=== PATIENT | female | born 1975 | race African-American/Black ===

== ENCOUNTER 2018-07-17 11:04 | Inpatient (IN) | payer OTHER ==
[2018-07-17 12:27] VITALS: BMI 19.2
--- NOTE | 2018-07-17 13:03 | HP ---
CIWA Score - Admission Criteria [facility] Guidelines: Admission for Medically Managed Detox: Requires at least one of the followin. CIWA greater than 12 2. Seizures within the past 24 hours 3. Delirium tremens within the past 24 hours 4. Hallucinations within the past 24 hours 5. Acute intervention needed for co occurring medical disorder 6. Acute intervention needed for co occurring psychiatric disorder 7. Severe withdrawal that cannot be handled at a lower level of care (continued vomiting, continued diarrhea, abnormal vital signs) requiring intravenous medication and/or fluids 8. Admission ROS S - HPI Chief Complaint: i am here for rehab,alcohol,cocaine,marijuana,requested rehab,multiple rehab admissions,last 03/20/15 to 04/03/15 keep relapsing nicotine dependence 1 pack/day,requesting nicotine patch weight loss longest period of sobriety 2 years plan to go back to outpatient program after rehab Allergies/Adverse Reactions: Allergies Allergy/AdvReac Type Severity Reaction Status Date / Time doxycycline Allergy Severe Hives Verified 07/17/18 11:25 grapefruit Allergy Severe Hives Verified 07/17/18 11:25 History of Present Illness: this 43 years old female with alcohol,cocaine and marijuana dependence for rehab as mentioned in chief complaint Exam Limitations: No Limitations - Ebola screening Have you traveled outside of the country in the last 21 days: No Have you had contact with anyone from an Ebola affected area: No - Review of Systems Constitutional: No Symptoms Reported EENT: reports: No Symptoms Reported Respiratory: reports: No Symptoms reported, Other (asthma) Cardiac: reports: No Symptoms Reported GI: reports: No Symptoms Reported : reports: No Symptoms Reported Musculoskeletal: reports: No Symptoms Reported Integumentary: reports: No Symptoms Reported Neuro: reports: No Symptoms reported Endocrine: reports: No Symptoms Reported Hematology: reports: No Symptoms Reported Psychiatric: reports: No Sypmtoms Reported, Judgement Intact, Mood/Affect Appropiate, Orientated x3 Other Systems: Reviewed and Negative Patient History - Patient Medical History Hx Anemia: No Hx Asthma: Yes (Pt is on Albuterol IH) Hx Chronic Obstructive Pulmonary Disease (COPD): No Hx Cancer: No Hx Cardiac Disorders: No Hx Congestive Heart Failure: No Hx Hypertension: No Hx Hypercholesterolemia: No Hx Pacemaker: No HX Cerebrovascular Accident: No Hx Seizures: No Hx Dementia: No Hx Diabetes: No Hx Gastrointestinal Disorders: No Hx Liver Disease: No Hx Genitourinary Disorders: No Hx Sexually Transmitted Disorders: No Hx Renal Disease (ESRD): No Hx Thyroid Disease: No Hx Human Immunodeficiency Virus (HIV): Yes (since 1998 ,no medication) Hx Hepatitis C: No Hx Depression: Yes (no med) Hx Suicide Attempt: No Hx Bipolar Disorder: No Hx Schizophrenia: No Other Medical History: no suicidal,no homicidal - Patient Surgical History Past Surgical History: No Hx Neurologic Surgery: No Hx Cataract Extraction: No Hx Cardiac Surgery: No Hx Lung Surgery: No Hx Breast Surgery: No Hx Breast Biopsy: No Hx Abdominal Surgery: No Hx Appendectomy: No Hx Cholecystectomy: No Hx Genitourinary Surgery: No Hx Section: No Hx Orthopedic Surgery: No Anesthesia Reaction: No - PPD History Previous Implant?: Yes Documented Results: Positive w/o proof Implanted On Prior R Admission?: No PPD to be Administered?: No - Reproductive History Patient is a Female of Child Bearing Age (11 -55 yrs old): Yes Last Menstrual Period: 07/10/18 Patient : No - Smoking Cessation Smoking history: Current every day smoker Have you smoked in the past 12 months: Yes Cigars Per Day: 20 Hx Chewing Tobacco Use: No Initiated information on smoking cessation: Yes 'Breaking Loose' booklet given: 07/17/18 - Substance & Tx. History Hx Alcohol Use: Yes Hx Substance Use: Yes Substance Use Type: Alcohol, Cocaine, Marijuana Hx Substance Use Treatment: Yes (03/20/15 to 04/03/15) - Substances abused Alcohol Substance route: Oral Frequency: 3-6 times per week Amount used: 2 pt. vodka, 1 six pk beers ( 24 oz) Age of first use: 12 Date of last use: 07/14/18 Marijuana/Hashish Substance route: Smoking Frequency: Daily Amount used: $20 Age of first use: 12 Date of last use: 07/17/18 Crack Substance route: Smoking Frequency: Daily Amount used: $500 Age of first use: 23 Date of last use: 07/14/18 Family Disease History - Family Disease History Family Disease History: Other: Father (alcohol,), Mother (alcohol,dsa) Admission Physical Exam [facility] - Vital Signs Vital Signs: Vital Signs - 24 hr 07/17/18 11:29 Temperature 98 F Pulse Rate 79 Respiratory 18 Rate Blood Pressure 106/69 - Physical General Appearance: Yes: Within Normal Limits HEENTM: Yes: Within Normal Limits Respiratory: Yes: Within Normal Limits, Lungs Clear, Normal Breath Sounds ( asthma) Neck: Yes: Within Normal Limits, Supple, Trachea in good position Breast: Yes: Breast Exam Deferred Cardiology: Yes: Within Normal Limits, Regular Rhythm, Regular Rate, S1, S2 Abdominal: Yes: Within Normal Limits, Normal Bowel Sounds, Soft Genitourinary: Yes: Within Normal Limits Back: Yes: Within Normal Limits Musculoskeletal: Yes: Within Normal Limits, full range of Motion Extremities: Yes: Within Normal Limits 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, Fully Oriented, Alert, Motor Strength 5/5 Integumentary: Yes: Within Normal Limits Lymphatic: Yes: Within Normal Limits - Diagnostic (1) Alcohol dependence Current Visit: No Status: Chronic (2) Asthma Current Visit: No Status: Chronic (3) Cannabis dependence Current Visit: No Status: Chronic (4) Cocaine dependence Current Visit: No Status: Chronic (5) HIV (human immunodeficiency virus infection) Current Visit: No Status: Chronic (6) Nicotine dependence Current Visit: No Status: Chronic (7) PTSD (post-traumatic stress disorder) Current Visit: No Status: Chronic (8) Arthritis Current Visit: Yes Status: Acute (9) Positive PPD Current Visit: Yes Status: Acute Cleared for Admission [facility] - Detox or Rehab Claeared for Rehab Admission: Yes Inpatient Rehab Admission - Rehab Decision to Admit Inpatient rehab admission?: Yes - Initial Determination Are CD services needed?: Yes Free of communicable disease: Yes Not in need of hospitalization: Yes - Rehab Admission Criteria Previous failed treatment: Yes Poor recovery environment: Yes Comorbidities: Yes Lacks judgement: No Patient is meeting Inpatient Rehab admission criteria:: Yes
[2018-07-17] MEDS ORDERED: MAGNESIUM HYDROX 2400MG/30ML ORAL SUSPENSION 30 ML CUP PO PRN (13:15)
[2018-07-17] MEDS ORDERED: MAG HYDROX/AL HYDROX/SIMETH 30 ML UNIT-DOSE CUP PO PRN (13:15)
[2018-07-17] MEDS ORDERED: ACETAMINOPHEN 325 MG TABLET (FP) PO PRN (13:15)
[2018-07-17] MEDS ORDERED: P-EPHED 60MG/TRIPROLIDI 2.5MG TABLET PO PRN (13:15)
[2018-07-17] MEDS ORDERED: hydrOXYzine PAMOATE 25 MG CAPSULE (FP) PO PRN (13:15)
[2018-07-17] MEDS ORDERED: MENTHOL/PHENOL 1 EACH UD MM PRN (13:15)
[2018-07-17] MEDS ORDERED: LOPERAMIDE HCL 2 MG CAPSULE PO PRN (13:15)
[2018-07-17] MEDS ORDERED: IBUPROFEN 400 MG TABLET (FP) PO PRN (13:15)
[2018-07-17] MEDS ORDERED: guaiFENesin 200 MG/10 ML 10 ML UNIT-DOSE CUPS PO PRN (13:15)
[2018-07-17] MEDS ORDERED: MAGNESIUM CITRATE 300 ML BOTTLE PO PRN (13:15)
[2018-07-17] MEDS: NICOTINE 21 MG/24 HOURS TOPICAL PATCH TD SCH (14:55)
[2018-07-17 17:10] LABS: HEMATOCRIT 38.4 % (32.4-45.2); HEMOGLOBIN 12.6 GM/dL (10.7-15.3); MCH 29.5 pg (25.7-33.7); MCHC 32.8 g/dl (32.0-36.0); MEAN CELL VOLUME 90.1 fl (80-96); MEAN PLT VOLUME 7.9 fl (7.5-11.1); PLATELET COUNT 207 K/MM3 (134-434); RBC 4.26 M/mm3 (3.60-5.2); RDW 15.2 % (11.6-15.6); WHITE BLOOD COUNT 3.3 K/mm3 (4.0-10.0)
[2018-07-17 17:22] LABS: ALBUMIN 2.6 g/dl (3.4-5.0); ALK PHOS 52 U/L (45-117); ANION GAP 6 MMOL/L (8-16); BILIRUBIN,TOTAL 0.1 mg/dL (0.2-1); BLOOD UREA NITROGEN 16 mg/dL (7-18); CALCIUM 8.7 mg/dL (8.5-10.1); CHLORIDE 111 mmol/L (98-107); CO2 22 mmol/L (21-32); CREATININE 0.7 mg/dL (0.55-1.3); GLUCOSE,RANDOM 104 mg/dL (74-106); POTASSIUM 4.2 mmol/L (3.5-5.1); SGOT/AST 17 U/L (15-37); SGPT/ALT 17 U/L (13-61); SODIUM 138 mmol/L (136-145); TOT PROT 7.5 g/dl (6.4-8.2)
[2018-07-17 17:50] LABS: EPI CELLS 8.2 /HPF (0-5/HPF); PH,URINE 5.5 (5.0-8.0); URINE APPEARANCE CLEAR; URINE BACTERIA 160.7 /hpf (NEGATIVE); URINE BILIRUBIN NEGATIVE (NEGATIVE); URINE CASTS 8 /hpf (0-8); URINE COLOR YELLOW; URINE GLUCOSE (UA) NEGATIVE (NEGATIVE); URINE KETONE NEGATIVE (NEGATIVE); URINE LEUK ESTERASE 1+ (NEGATIVE); URINE NITRITE NEGATIVE (NEGATIVE); URINE PROTEIN TRACE (NEGATIVE); URINE RBC 1 /hpf (0-4); URINE UROBILINOGEN 0.2 mg/dL (0.2-1.0); URINE WBC 13 /hpf (0-5)
[2018-07-17] MEDS ORDERED: MELATONIN 5 MG TABLETS PO PRN (22:00)
[2018-07-17] MEDS: THIAMINE HCL 100 MG TABLET (FP) PO SCH (23:07)
[2018-07-18] MEDS: PRENATAL VITAMINS W/ FOLIC ACID TABLET (FP) PO SCH (10:00)
[2018-07-18] MEDS: NICOTINE 21 MG/24 HOURS TOPICAL PATCH TD SCH (10:00)
[2018-07-18] MEDS: THIAMINE HCL 100 MG TABLET (FP) PO SCH (21:42)
[2018-07-19] MEDS: PRENATAL VITAMINS W/ FOLIC ACID TABLET (FP) PO SCH (09:50)
[2018-07-19] MEDS: NICOTINE 21 MG/24 HOURS TOPICAL PATCH TD SCH (09:50)
[2018-07-19] MEDS: THIAMINE HCL 100 MG TABLET (FP) PO SCH (21:18)
[2018-07-20] MEDS: PRENATAL VITAMINS W/ FOLIC ACID TABLET (FP) PO SCH (09:43)
[2018-07-20] MEDS: NICOTINE 21 MG/24 HOURS TOPICAL PATCH TD SCH (09:44)
[2018-07-20] MEDS: THIAMINE HCL 100 MG TABLET (FP) PO SCH (21:54)
[2018-07-21] MEDS: NICOTINE 21 MG/24 HOURS TOPICAL PATCH TD SCH (10:21)
[2018-07-21] MEDS: PRENATAL VITAMINS W/ FOLIC ACID TABLET (FP) PO SCH (10:21)
[2018-07-21] MEDS ORDERED: COLLOIDAL OATMEAL 1 BAR EACH TP PRN (14:39)
--- NOTE | 2018-07-21 14:39 | PN ---
[facility] Progress Note Note: PT C/O VAGINAL DISCHARGE WITH ITCHINESS/BURNING SENSATION, LUMPY AND WHITE DISCHARGE FOR ONE AND HALF WEEKS. Vital Signs 07/21/18 07:11 Temperature 97.5 F L Pulse Rate 83 Respiratory 16 Rate Blood Pressure 112/71 Laboratory Tests 07/17/18 07/17/18 07/17/18 13:15 13:15 13:15 WBC 3.3 L RBC 4.26 Hgb 12.6 Hct 38.4 MCV 90.1 MCH 29.5 MCHC 32.8 RDW 15.2 Plt Count 207 MPV 7.9 Sodium 138 Potassium 4.2 Chloride 111 H Carbon Dioxide 22 Anion Gap 6 L BUN 16 Creatinine 0.7 Creat Clearance w eGFR 92.22 Random Glucose 104 Calcium 8.7 Total Bilirubin 0.1 L AST 17 ALT 17 Alkaline Phosphatase 52 Total Protein 7.5 Albumin 2.6 L Urine Color Urine Appearance Urine pH Ur Specific [place] Urine Protein Urine Glucose (UA) Urine Ketones Urine Blood Urine Nitrite Urine Bilirubin Urine Urobilinogen Ur Leukocyte Esterase Urine WBC (Auto) Urine RBC (Auto) Urine Casts (Auto) U Epithel Cells (Auto) Urine Bacteria (Auto) RPR Titer Nonreactive 07/17/18 16:00 WBC RBC Hgb Hct MCV MCH MCHC RDW Plt Count MPV Sodium Potassium Chloride Carbon Dioxide Anion Gap BUN Creatinine Creat Clearance w eGFR Random Glucose Calcium Total Bilirubin AST ALT Alkaline Phosphatase Total Protein Albumin Urine Color Yellow Urine Appearance Clear Urine pH 5.5 Ur Specific [place] 1.018 Urine Protein Trace Urine Glucose (UA) Negative Urine Ketones Negative Urine Blood Negative Urine Nitrite Negative Urine Bilirubin Negative Urine Urobilinogen 0.2 Ur Leukocyte Esterase 1+ H Urine WBC (Auto) 13 Urine RBC (Auto) 1 Urine Casts (Auto) 8 U Epithel Cells (Auto) 8.2 Urine Bacteria (Auto) 160.7 RPR Titer UA NOTED A:NUNO INFECTION PLAN:REPEAT UA UC R/O OTHER PATHOLOGY. DIFLUCAN 150 MG PO ONCE. FOLLOW UP WITH UA/UC
[2018-07-21] MEDS ORDERED: MINERAL OIL/PETROLAT/WATER TOPICAL CREAM 113 GM JAR TP SCH (14:45)
[2018-07-21] MEDS: THIAMINE HCL 100 MG TABLET (FP) PO SCH (21:17)
[2018-07-22] MEDS: PRENATAL VITAMINS W/ FOLIC ACID TABLET (FP) PO SCH (10:10)
[2018-07-22] MEDS: NICOTINE 21 MG/24 HOURS TOPICAL PATCH TD SCH (10:10)
[2018-07-22] MEDS ORDERED: MINERAL OIL/PETROLAT/WATER TOPICAL CREAM 454 GM JAR TP PRN (10:18)
[2018-07-22] MEDS ORDERED: FLUCONAZOLE 100 MG TABLET (UD) PO ONE (12:07)
[2018-07-22] MEDS ORDERED: ALBUTEROL SO4 8 GM HFA INHALER IH PRN (12:11)
[2018-07-22 15:00] LABS: EPI CELLS 2.9 /HPF (0-5/HPF); PH,URINE 5.5 (5.0-8.0); URINE APPEARANCE CLEAR; URINE BACTERIA 111.8 /hpf (NEGATIVE); URINE BILIRUBIN NEGATIVE (NEGATIVE); URINE CASTS 1 /lpf (0-8); URINE COLOR YELLOW; URINE GLUCOSE (UA) NEGATIVE (NEGATIVE); URINE KETONE NEGATIVE (NEGATIVE); URINE LEUK ESTERASE NEGATIVE (NEGATIVE); URINE NITRITE NEGATIVE (NEGATIVE); URINE PROTEIN 1+ (NEGATIVE); URINE RBC 1 /hpf (0-4); URINE WBC 7 /hpf (0-5)
[2018-07-22] MEDS ORDERED: PT OWN MED DRAWER 7, Y5N ONE ×2 (15:00→15:42)
--- NOTE | 2018-07-22 15:31 | PN ---
[facility] Progress Note Note: PT IS CURRENTLY ON ANTI RETROVIRAL MEDICATIONS(SEE HOME MEDS) EVIDENCED FROM HER HOME PHARMACY AND PT CONFIRMS SHE IS TAKING HER MEDS. REPORTS SHE LEFT THEM AT [facility] AND EFFORT TO BRING THEM TO HER HERE FAILED BECAUSE THE MEDS COULD NOT BE RELEASED TO OTHER PERSONS. 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 PT REPORTS SHE HAS A PCP DR. SUSAN TALAVERA AT [facility] ON [address], [place]. Home Medications Medication Instructions Recorded Albuterol Sulfate Inhaler - 1 - 2 inh PO Q4H PRN 07/22/18 [Ventolin Hfa Inhaler -] Budesonide/Formeterol Fumarate 2 puff IH BID 07/22/18 [SYMBICORT 160/4.5mcg -] Darunavir Ethanolate [Prezista] 800 mg PO DAILY 07/22/18 Emtricitabine/Tenofov Alafenam 1 each PO DAILY 07/22/18 [Descovy 200-25 mg Tablet (Nf)] Quetiapine Fumarate [Seroquel -] 25 mg PO HS 07/22/18 Ritonavir 100 mg PO DAILY 07/22/18 Valacyclovir HCl [Valtrex] 500 mg PO DAILY 07/22/18 Vital Signs - 24 hr 07/22/18 07/22/18 03:30 07:10 Temperature 97.6 F Pulse Rate 76 Respiratory 16 18 Rate Blood Pressure 113/76 Laboratory Tests 07/17/18 07/17/18 07/17/18 13:15 13:15 13:15 WBC 3.3 L RBC 4.26 Hgb 12.6 Hct 38.4 MCV 90.1 MCH 29.5 MCHC 32.8 RDW 15.2 Plt Count 207 MPV 7.9 Sodium 138 Potassium 4.2 Chloride 111 H Carbon Dioxide 22 Anion Gap 6 L BUN 16 Creatinine 0.7 Creat Clearance w eGFR 92.22 Random Glucose 104 Calcium 8.7 Total Bilirubin 0.1 L AST 17 ALT 17 Alkaline Phosphatase 52 Total Protein 7.5 Albumin 2.6 L Urine Color Urine Appearance Urine pH Ur Specific [place] Urine Protein Urine Glucose (UA) Urine Ketones Urine Blood Urine Nitrite Urine Bilirubin Urine Urobilinogen Ur Leukocyte Esterase Urine WBC (Auto) Urine RBC (Auto) Urine Casts (Auto) U Epithel Cells (Auto) Urine Bacteria (Auto) RPR Titer Nonreactive 07/17/18 07/22/18 16:00 12:00 WBC RBC Hgb Hct MCV MCH MCHC RDW Plt Count MPV Sodium Potassium Chloride Carbon Dioxide Anion Gap BUN Creatinine Creat Clearance w eGFR Random Glucose Calcium Total Bilirubin AST ALT Alkaline Phosphatase Total Protein Albumin Urine Color Yellow Yellow Urine Appearance Clear Clear Urine pH 5.5 5.5 Ur Specific [place] 1.018 1.021 Urine Protein Trace 1+ H Urine Glucose (UA) Negative Negative Urine Ketones Negative Negative Urine Blood Negative Negative Urine Nitrite Negative Negative Urine Bilirubin Negative Negative Urine Urobilinogen 0.2 1.0 Ur Leukocyte Esterase 1+ H Negative Urine WBC (Auto) 13 7 Urine RBC (Auto) 1 1 Urine Casts (Auto) 8 1 U Epithel Cells (Auto) 8.2 2.9 Urine Bacteria (Auto) 160.7 111.8 RPR Titer A:ABNL UA HX HIV+ HX GENITAL HERPES PLAN:FOLLOW UP WITH REORDER MEDS ABOVE.
[2018-07-22] MEDS: valACYclovir HCL 500 MG TABLET (FP) PO SCH (16:30)
[2018-07-22] MEDS: EMTRICITABINE/TENOFOV ALAFENAM (DESCOVY) TABLET PO SCH (16:30)
[2018-07-22] MEDS: RITONAVIR 100 MG TABLET PO SCH (16:30)
[2018-07-22] MEDS: THIAMINE HCL 100 MG TABLET (FP) PO SCH (21:26)
[2018-07-22] MEDS: DARUNAVIR ETHANOLATE 800 MG TAB PO SCH (21:27)
[2018-07-22] MEDS: BUDESONIDE/FORMETEROL FUMARATE 160/4.5 mcg INHALER IH SCH (21:29)
[2018-07-23] MEDS: DARUNAVIR ETHANOLATE 800 MG TAB PO SCH (07:44)
[2018-07-23] MEDS: RITONAVIR 100 MG TABLET PO SCH (07:44)
[2018-07-23] MEDS: PRENATAL VITAMINS W/ FOLIC ACID TABLET (FP) PO SCH (09:27)
[2018-07-23] MEDS: NICOTINE 21 MG/24 HOURS TOPICAL PATCH TD SCH (09:27)
[2018-07-23] MEDS: valACYclovir HCL 500 MG TABLET (FP) PO SCH (09:27)
[2018-07-23] MEDS: EMTRICITABINE/TENOFOV ALAFENAM (DESCOVY) TABLET PO SCH (09:27)
[2018-07-23] MEDS: FLUCONAZOLE 100 MG TABLET (UD) PO SCH (09:27)
[2018-07-23] MEDS: BUDESONIDE/FORMETEROL FUMARATE 160/4.5 mcg INHALER IH SCH ×2 (09:28→21:34)
--- NOTE | 2018-07-23 13:42 | PN ---
[facility] Progress Note Note: Urine Test Results Urine Color Yellow 07/22/18 12:00 Urine Appearance Clear 07/22/18 12:00 Urine pH 5.5 (5.0-8.0) 07/22/18 12:00 Ur Specific [place] 1.021 (1.010-1.035) 07/22/18 12:00 Urine Protein 1+ (NEGATIVE) H 07/22/18 12:00 Urine Glucose (UA) Negative (NEGATIVE) 07/22/18 12:00 Urine Ketones Negative (NEGATIVE) 07/22/18 12:00 Urine Blood Negative (NEGATIVE) 07/22/18 12:00 Urine Nitrite Negative (NEGATIVE) 07/22/18 12:00 Urine Bilirubin Negative (NEGATIVE) 07/22/18 12:00 Ur Leukocyte Esterase Negative (NEGATIVE) 07/22/18 12:00 Laboratory Tests 07/17/18 07/17/18 07/17/18 13:15 13:15 13:15 WBC 3.3 L RBC 4.26 Hgb 12.6 Hct 38.4 MCV 90.1 MCH 29.5 MCHC 32.8 RDW 15.2 Plt Count 207 MPV 7.9 Sodium 138 Potassium 4.2 Chloride 111 H Carbon Dioxide 22 Anion Gap 6 L BUN 16 Creatinine 0.7 Creat Clearance w eGFR 92.22 Random Glucose 104 Calcium 8.7 Total Bilirubin 0.1 L AST 17 ALT 17 Alkaline Phosphatase 52 Total Protein 7.5 Albumin 2.6 L Urine Color Urine Appearance Urine pH Ur Specific [place] Urine Protein Urine Glucose (UA) Urine Ketones Urine Blood Urine Nitrite Urine Bilirubin Urine Urobilinogen Ur Leukocyte Esterase Urine WBC (Auto) Urine RBC (Auto) Urine Casts (Auto) U Epithel Cells (Auto) Urine Bacteria (Auto) RPR Titer Nonreactive 07/17/18 07/22/18 16:00 12:00 WBC RBC Hgb Hct MCV MCH MCHC RDW Plt Count MPV Sodium Potassium Chloride Carbon Dioxide Anion Gap BUN Creatinine Creat Clearance w eGFR Random Glucose Calcium Total Bilirubin AST ALT Alkaline Phosphatase Total Protein Albumin Urine Color Yellow Yellow Urine Appearance Clear Clear Urine pH 5.5 5.5 Ur Specific [place] 1.018 1.021 Urine Protein Trace 1+ H Urine Glucose (UA) Negative Negative Urine Ketones Negative Negative Urine Blood Negative Negative Urine Nitrite Negative Negative Urine Bilirubin Negative Negative Urine Urobilinogen 0.2 1.0 Ur Leukocyte Esterase 1+ H Negative Urine WBC (Auto) 13 7 Urine RBC (Auto) 1 1 Urine Casts (Auto) 8 1 U Epithel Cells (Auto) 8.2 2.9 Urine Bacteria (Auto) 160.7 111.8 RPR Titer Microbiology 07/22/18 12:00 Urine - Urine Clean Catch Urine Culture - Preliminary Beta Hemolytic Strep REPEAT UA IMPROVED UC PRELIMINARY RESULT ABOVE. TO FOLLOW UP WITH CONFIRMATORY FINAL RESULT.
[2018-07-23] MEDS: THIAMINE HCL 100 MG TABLET (FP) PO SCH (21:33)
[2018-07-24 07:17] VITALS: BP 113/76; PULSE 78; TEMP 97.8
[2018-07-24] MEDS ORDERED: PT OWN MED DRAWER 7, Y5N ONE (08:45)
[2018-07-24] MEDS: valACYclovir HCL 500 MG TABLET (FP) PO SCH (10:22)
[2018-07-24] MEDS: FLUCONAZOLE 100 MG TABLET (UD) PO SCH (10:22)
[2018-07-24] MEDS: PRENATAL VITAMINS W/ FOLIC ACID TABLET (FP) PO SCH (10:22)
[2018-07-24] MEDS: NICOTINE 21 MG/24 HOURS TOPICAL PATCH TD SCH (10:23)
[2018-07-24] MEDS: BUDESONIDE/FORMETEROL FUMARATE 160/4.5 mcg INHALER IH SCH (10:23)
[2018-07-24] MEDS ORDERED: RITONAVIR 100 MG TABLET PO SCH (12:00)
[2018-07-24] MEDS ORDERED: EMTRICITABINE/TENOFOV ALAFENAM (DESCOVY) TABLET PO SCH (12:00)
[2018-07-24] MEDS ORDERED: DARUNAVIR ETHANOLATE 800 MG TAB PO SCH (12:00)
--- NOTE | 2018-07-24 12:18 | PN ---
[facility] Progress Note Note: PT SAW HER COUNSELOR MS KELLY SPARKS AND REQUESTED FOR EARLY DISCHARGE. PT IS REFERRED [facility] ON [id number] [place], [place] FOR CD AFTERCARE AND MEDICAL/ PSYCH MANAGEMENT AT SAME LOCATION. HOWEVER, PT REPORTS HE HAS A PCP, DR. SUSAN TALAVERA AT [facility])SEE NOTE OF 07/22/18). PT REPORTS SHE HAS HER MEDICATIONS AT HOME AND HAS NO NEED FOR RX AT THIS TIME. PT ALSO DECLINED UTI TREATMENT THAT WAS OFFERED FIRST DOSE AND TO CONTINUE AT HOME WITH A RX TO BE SENT. PT PREFERRED TO TAKE COPY OF THE TEST RESULT WITH HER TO HER DOCTOR TODAY. ALERT O X 3. DENIES S/H/I. Vital Signs - 24 hr 07/24/18 07/24/18 03:30 06:30 Temperature 97.8 F Pulse Rate 78 Respiratory 18 18 Rate Blood Pressure 113/76 Laboratory Tests 07/17/18 07/17/18 07/17/18 13:15 13:15 13:15 WBC 3.3 L RBC 4.26 Hgb 12.6 Hct 38.4 MCV 90.1 MCH 29.5 MCHC 32.8 RDW 15.2 Plt Count 207 MPV 7.9 Sodium 138 Potassium 4.2 Chloride 111 H Carbon Dioxide 22 Anion Gap 6 L BUN 16 Creatinine 0.7 Creat Clearance w eGFR 92.22 Random Glucose 104 Calcium 8.7 Total Bilirubin 0.1 L AST 17 ALT 17 Alkaline Phosphatase 52 Total Protein 7.5 Albumin 2.6 L Urine Color Urine Appearance Urine pH Ur Specific [place] Urine Protein Urine Glucose (UA) Urine Ketones Urine Blood Urine Nitrite Urine Bilirubin Urine Urobilinogen Ur Leukocyte Esterase Urine WBC (Auto) Urine RBC (Auto) Urine Casts (Auto) U Epithel Cells (Auto) Urine Bacteria (Auto) RPR Titer Nonreactive 07/17/18 07/22/18 16:00 12:00 WBC RBC Hgb Hct MCV MCH MCHC RDW Plt Count MPV Sodium Potassium Chloride Carbon Dioxide Anion Gap BUN Creatinine Creat Clearance w eGFR Random Glucose Calcium Total Bilirubin AST ALT Alkaline Phosphatase Total Protein Albumin Urine Color Yellow Yellow Urine Appearance Clear Clear Urine pH 5.5 5.5 Ur Specific [place] 1.018 1.021 Urine Protein Trace 1+ H Urine Glucose (UA) Negative Negative Urine Ketones Negative Negative Urine Blood Negative Negative Urine Nitrite Negative Negative Urine Bilirubin Negative Negative Urine Urobilinogen 0.2 1.0 Ur Leukocyte Esterase 1+ H Negative Urine WBC (Auto) 13 7 Urine RBC (Auto) 1 1 Urine Casts (Auto) 8 1 U Epithel Cells (Auto) 8.2 2.9 Urine Bacteria (Auto) 160.7 111.8 RPR Titer REPEAT UA GROSSLY SLIGHTLY IMPROVED Microbiology 07/22/18 12:00 Urine - Urine Clean Catch Urine Culture - Final Strep Agalactiae Group B PER SENSITIVITY TESTING LEVAQUINE 500 MG PO DAILY WAS A CHOICE AND A STAT DOSE ORDERED OF WHICH PT DECLINED. (COPY OF LAB RESULTS GIVEN TO PATIENT FOR FOLLOW UP SHE REQUESTED). A:UTI PLAN:D/C TODAY PER REQUEST FOLLOW UP WITH CD AFTERCARE AND YOUR PMD ABOVE PLAN. CONTINUE WITH YOUR HOME MEDICATIONS.
== END 2018-07-24 12:45 | disposition home or self-care (01) | DRG 772 ==
LOC: YASAS 11:04 → Y3E 13:15
PROVIDERS: ADMIT Neuromusculoskeletal Medicine & OMM; ATTEND Neuromusculoskeletal Medicine & OMM
PROC: HZ42ZZZ Group Counseling for Substance Abuse Treatment, Cognitive-Behavioral (ICD-10-PCS; principal; 2018-07-17)
DX: F10.20 Alcohol dependence, uncomplicated (principal); F14.20 Cocaine dependence, uncomplicated; F12.20 Cannabis dependence, uncomplicated; F17.210 Nicotine dependence, cigarettes, uncomplicated; F43.10 Post-traumatic stress disorder, unspecified; Z21 Asymptomatic human immunodeficiency virus [HIV] infection status; N39.0 Urinary tract infection, site not specified; B37.9 Candidiasis, unspecified; J45.909 Unspecified asthma, uncomplicated; M19.90 Unspecified osteoarthritis, unspecified site; Z87.42 Personal history of other diseases of the female genital tract; Z88.1 Allergy status to other antibiotic agents
CPT/HCPCS: 36415; 71046-TC-FY; 80053; 81003; 85027; 86593; 87086; 87186